=== PATIENT | female | born 1990 | race African-American/Black ===

== ENCOUNTER 2022-05-12 14:57 | Observation (INO) | payer OTHER ==
[2022-05-12 15:22] VITALS: BMI 38.7
[2022-05-12 17:54] LABS: BASO % 0.5 % (0-2.0); EOS % 1.5 % (0-4.5); HEMATOCRIT 36.6 % (32.4-45.2); LYMPH % 27.9 % (8-40); MCH 30.3 pg (25.7-33.7); MCHC 32.7 g/dl (32.0-36.0); MEAN CELL VOLUME 92.6 fl (80-96); MONO % 8.7 % (3.8-10.2); NEUT % 61.4 % (42.8-82.8); PLATELET COUNT 388 10^3/uL (134-434); RBC 3.96 M/mm3 (3.60-5.2); RDW 13.6 % (11.6-15.6); WHITE BLOOD COUNT 7.4 K/mm3 (4.0-10.0)
[2022-05-12 18:04] LABS: INR 1.15 (0.83-1.09); PROTHROMBIN TIME (PATIENT) 13.2 SEC (9.7-13.0)
[2022-05-12 18:07] LABS: ACTIVATED PTT 29.9 SECONDS (25.2-36.5)
[2022-05-12 18:15] LABS: CALCIUM 8.6 mg/dL (8.5-10.1); CHLORIDE 104 mmol/L (98-107); SODIUM 136 mmol/L (136-145)
[2022-05-12 18:17] LABS: ALBUMIN 3.4 g/dl (3.4-5.0); ANION GAP 8 MMOL/L (8-16); CO2 24 mmol/L (21-32)
[2022-05-12 18:18] LABS: BLOOD UREA NITROGEN 12.6 mg/dL (7-18); GLUCOSE,RANDOM 73 mg/dL (74-106)
[2022-05-12 18:19] LABS: CREATININE 0.6 mg/dL (0.55-1.3)
[2022-05-12 18:20] LABS: SGOT/AST 19 U/L (15-37); SGPT/ALT 21 U/L (13-61)
[2022-05-12 18:21] LABS: CHOLESTEROL 145 mg/dL (50-200); TOT PROT 7.6 g/dl (6.4-8.2); TRIGLYCERIDES 53 mg/dL (0-150)
[2022-05-12 18:22] LABS: BILIRUBIN,TOTAL 0.4 mg/dL (0.2-1); LDL CHOLESTEROL (ONLY SJRH) 91 mg/dL (5-100)
[2022-05-12 18:24] LABS: ALK PHOS 105 U/L (45-117); HDL CHOLESTEROL 46 mg/dL (40-60)
[2022-05-12 18:55] LABS: PH,URINE 5.5 (5.0-8.0); URINE APPEARANCE CLEAR; URINE BILIRUBIN NEGATIVE (NEGATIVE); URINE COLOR YELLOW; URINE GLUCOSE (UA) NEGATIVE (NEGATIVE); URINE KETONE NEGATIVE (NEGATIVE); URINE PROTEIN NEGATIVE (NEGATIVE)
[2022-05-12 18:56] LABS: URINE LEUK ESTERASE NEGATIVE (NEGATIVE); URINE NITRITE NEGATIVE (NEGATIVE); URINE UROBILINOGEN 0.2 mg/dL (0.2-1.0)
[2022-05-13] MEDS ORDERED: ATORVASTATIN CA 80 MG TABLET (FP) PO ONE (00:02)
[2022-05-13] MEDS ORDERED: ASPIRIN 81 MG CHEWABLE TABLETS PO ONE (00:20)
[2022-05-13] MEDS ORDERED: ASPIRIN 325 MG TABLET ONE (00:31)
[2022-05-13 02:42] VITALS: RESP 20
[2022-05-13 09:07] LABS: HEMATOCRIT 36.5 % (32.4-45.2); HEMOGLOBIN 11.9 GM/dL (10.7-15.3); MCHC 32.6 g/dl (32.0-36.0); MEAN CELL VOLUME 92.1 fl (80-96); MEAN PLT VOLUME 8.7 fl (7.5-11.1); PLATELET COUNT 402 10^3/uL (134-434); RBC 3.96 M/mm3 (3.60-5.2); RDW 13.7 % (11.6-15.6); WHITE BLOOD COUNT 5.3 K/mm3 (4.0-10.0)
[2022-05-13 09:29] LABS: ALBUMIN 3.1 g/dl (3.4-5.0); BLOOD UREA NITROGEN 11.3 mg/dL (7-18)
[2022-05-13 09:31] LABS: CREATININE 0.7 mg/dL (0.55-1.3)
[2022-05-13 09:32] LABS: PHOSPHOROUS 3.6 mg/dL (2.5-4.9)
[2022-05-13 09:34] LABS: BILIRUBIN,TOTAL 0.6 mg/dL (0.2-1); TOT PROT 7.1 g/dl (6.4-8.2)
[2022-05-13] MEDS ORDERED: ASPIRIN 81 MG CHEWABLE TABLETS PO SCH (10:00)
[2022-05-13] MEDS: ASPIRIN 81 MG CHEWABLE TABLETS PO SCH (10:56)
[2022-05-14] MEDS: ASPIRIN 81 MG CHEWABLE TABLETS PO SCH (09:13)
[2022-05-14] MEDS ORDERED: ASPIRIN 81 MG CHEWABLE TABLETS PO SCH (10:00)
[2022-05-14] MEDS ORDERED: DOCUSATE SODIUM 100 MG CAPSULE (FP) PO ONE (11:30)
[2022-05-14] MEDS ORDERED: POLYETHYLENE GLYCOL (HEALTHYLAX) 3350 17 GM PACKET PO SCH (11:30)
[2022-05-14 14:39] VITALS: BP 113/64; PULSE 78; TEMP 98.5
[2022-05-14] MEDS ORDERED: DOCUSATE SODIUM 100 MG CAPSULE (FP) PO SCH (22:00)
== END 2022-05-14 19:45 | disposition short-term general hospital (02) ==
LOC: JER 14:57 → JERBED 18:28 → J7W 05-13 01:59
PROVIDERS: ADMIT Internal Medicine; ATTEND Internal Medicine
DX: C41.2 Malignant neoplasm of vertebral column (principal); E66.8 Other obesity; Z68.38 Body mass index [BMI] 38.0-38.9, adult
CPT/HCPCS: 36415; 70450-TC; 70496-TC; 70498-TC; 70553-TC; 71045-TC-FY; 80053; 80061; 81003; 82550; 82962; 83036; 83735; 84100; 84443; 84484; 84703; 85025; 85027; 85610; 85730; 86850; 86900; 86901; 93005; 93010; 99285-25; C9803-CS; G0378; Q9967; U0003; U0005